=== PATIENT | male | born 1960 | race Caucasian/White ===

== ENCOUNTER 2021-06-08 12:13 | Emergency (ER) | payer OTHER ==
[~2021-06-08] VITALS: Ht 170.2 cm; Wt 94.0 kg
[2021-06-08] MEDS ORDERED: IPRATROPIUM BROMIDE (0.02%) 0.5MG/2.5ML NEB HHN STA (12:49)
[2021-06-08] MEDS ORDERED: ALBUTEROL (0.083%) 2.5MG/3ML NEB HHN STA (12:49)
[2021-06-08] MEDS ORDERED: LORAZEPAM 2MG/ML CPJ IM ONE (14:15)
[2021-06-08 16:02] VITALS: BP 155/88
== END 2021-06-08 16:15 ==
LOC: ER 12:13
DX: S09.8XXA Other specified injuries of head, initial encounter (principal); F31.9 Bipolar disorder, unspecified; R06.02 Shortness of breath; M41.9 Scoliosis, unspecified; Z98.890 Other specified postprocedural states; Z86.59 Personal history of other mental and behavioral disorders; Z02.79 Encounter for issue of other medical certificate; V79.3XXA Bus occupant (driver) (passenger) injured in unspecified nontraffic accident, initial encounter; Y93.89 Activity, other specified; Y92.9 Unspecified place or not applicable
CPT/HCPCS: 70450; 94640; 96372; 99284; J2060; Z7610